=== PATIENT | male | born 1980 | race Caucasian/White ===

== ENCOUNTER 2019-04-15 14:14 | Inpatient (IN) | payer OTHER ==
[2019-04-15 17:16] VITALS: BMI 34.0
--- NOTE | 2019-04-15 18:09 | HP ---
COWS - Scale Resting Pulse: 0= [place] 80 or Below Sweatin=Flushed/Facial Moisture Restless Observation: 1= Difficult to Sit Still Pupil Size: 1= Pupils >than Normal Bone or Joint Aches: 1= Mild Discomfort Runny Nose/ Eye Tearin= Nasal Congestion GI Upset > 30mins: 2= Nausea/Diarrhea Tremor Observation: 2= Slight Tremor Visible Yawning Observation: 0= None Anxiety or Irritability: 2=Irritable/Anxious Goose Flesh Skin: 0=Smooth Skin COWS Score: 12 CIWA Score - Admission Criteria [facility]ASAS Guidelines: Admission for Medically Managed Detox: Requires at least one of the followin. CIWA greater than 12 2. Seizures within the past 24 hours 3. Delirium tremens within the past 24 hours 4. Hallucinations within the past 24 hours 5. Acute intervention needed for co occurring medical disorder 6. Acute intervention needed for co occurring psychiatric disorder 7. Severe withdrawal that cannot be handled at a lower level of care (continued vomiting, continued diarrhea, abnormal vital signs) requiring intravenous medication and/or fluids 8. Admission ROS S - HPI Chief Complaint: I NEED TO CHANGE Allergies/Adverse Reactions: Allergies Allergy/AdvReac Type Severity Reaction Status Date / Time No Known Allergies Allergy Verified 04/15/19 17:16 History of Present Illness: 38 YO MALE FIRST OPIATE USE 13 YO NOT CONSISTENT UNTIL AGE 35 COCAINE AGE 12; PROBLEMATIC TEEN NOW USING 10 BAGS YESTERDAY NOT DAILY USE HAS ATTEMPYTED TO DC USE - 8 MOS ABSTINENT IN [facility] - Ebola screening Have you traveled outside of the country in the last 21 days: No (N) Have you had contact with anyone from an Ebola affected area: No Do you have a fever: No - Review of Systems Constitutional: Loss of Appetite, Changes in sleep EENT: reports: No Symptoms Reported Respiratory: reports: No Symptoms reported Cardiac: reports: No Symptoms Reported GI: reports: Nausea, Abdominal cramping : reports: No Symptoms Reported Musculoskeletal: reports: Joint Pain, Muscle Pain Integumentary: reports: No Symptoms Reported Neuro: reports: Headache Endocrine: reports: No Symptoms Reported Hematology: reports: No Symptoms Reported Psychiatric: reports: Agitated, Anxious Patient History - Patient Medical History Hx Anemia: No Hx Asthma: No Hx Chronic Obstructive Pulmonary Disease (COPD): No Hx Cancer: No Hx Cardiac Disorders: No Hx Congestive Heart Failure: No Hx Hypertension: No Hx Hypercholesterolemia: No Hx Pacemaker: No HX Cerebrovascular Accident: No Hx Seizures: No Hx Dementia: No Hx Diabetes: No Hx Gastrointestinal Disorders: No Hx Liver Disease: No Hx Genitourinary Disorders: No Hx Sexually Transmitted Disorders: No Hx Renal Disease (ESRD): No Hx Thyroid Disease: No Hx Human Immunodeficiency Virus (HIV): No Hx Hepatitis C: No Hx Depression: No Hx Suicide Attempt: No Hx Bipolar Disorder: No Hx Schizophrenia: No - Patient Surgical History Past Surgical History: No - Smoking Cessation Smoking history: Current every day smoker Have you smoked in the past 12 months: Yes Aproximately how many cigarettes per day: 8 Initiated information on smoking cessation: Yes 'Breaking Loose' booklet given: 04/15/19 - Substances abused Heroin Other (specify): sniff Frequency: Daily Amount used: 6 to 8 bags Age of first use: 35 Date of last use: 04/15/19 Admission Physical Exam [facility] - Vital Signs Vital Signs: Vital Signs - 24 hr 04/15/19 17:11 Temperature 97.1 F L Pulse Rate 64 Respiratory 19 Rate Blood Pressure 129/77 - Physical General Appearance: Yes: Disheveled, Irritable, Anxious HEENTM: Yes: EOMI, Normal ENT Inspection, Normocephalic, Normal Voice, BERNIE Respiratory: Yes: Within Normal Limits, Chest Non-Tender, Lungs Clear Neck: Yes: No masses,lesions,Nodules Breast: Yes: Breast Exam Deferred Cardiology: Yes: Regular Rhythm, Regular Rate, S1, S2 Abdominal: Yes: Normal Bowel Sounds, Non Tender Genitourinary: Yes: Within Normal Limits Back: Yes: Normal Inspection Musculoskeletal: Yes: Within Normal Limits, full range of Motion Extremities: Yes: Normal Inspection Neurological: Yes: sampler tester II-XII NML intact, Fully Oriented, Alert, Motor Strength 5/5 Integumentary: Yes: Normal Color, Track [place], Other (TATTOO) - Diagnostic (1) Opiate withdrawal Current Visit: Yes Status: Acute (2) Cocaine dependence Current Visit: Yes Status: Acute Cleared for Admission [facility] - Detox or Rehab [facility] Level of Care: Medically Supervised Detox Regimen/Protocol: Methadone Breathalyzer - Breathalyzer Breathalyzer: 0.007 Urine Drug Screen - Test Device Lot number: [id number] Expiration date: 12/22/20 - Control Is test valid?: Yes - Results Drug screen NEGATIVE: No Urine drug screen results: ELFEGO-Cocaine, FEN-Fentanyl, MOP-Opiates, OXY-Oxycodone Inpatient Rehab Admission - Rehab Decision to Admit Inpatient rehab admission?: No
[2019-04-15] MEDS ORDERED: MAG HYDROX/AL HYDROX/SIMETH 30 ML UNIT-DOSE CUP PO PRN (18:12)
[2019-04-15] MEDS ORDERED: hydrOXYzine PAMOATE 25 MG CAPSULE (FP) PO PRN (18:12)
[2019-04-15] MEDS ORDERED: MAGNESIUM HYDROX 2400MG/30ML ORAL SUSPENSION 30 ML CUP PO PRN (18:12)
[2019-04-15] MEDS ORDERED: MENTHOL/PHENOL 1 EACH UD MM PRN (18:12)
[2019-04-15] MEDS ORDERED: MAGNESIUM CITRATE 300 ML BOTTLE PO PRN (18:12)
[2019-04-15] MEDS ORDERED: IBUPROFEN 400 MG TABLET (FP) PO PRN (18:12)
[2019-04-15] MEDS ORDERED: BISMUTH SUBSALICYLATE 524 MG/30 ML UD PO PRN (18:12)
[2019-04-15] MEDS ORDERED: MELATONIN 5 MG TABLETS PO PRN (18:12)
[2019-04-15] MEDS ORDERED: ACETAMINOPHEN 325 MG TABLET (FP) PO PRN ×2 (18:12)
[2019-04-15] MEDS ORDERED: METHADONE HCL 10 MG TABLET (FOR DETOX USE ONLY) PO ONE (18:12)
[2019-04-15] MEDS: THIAMINE HCL 100 MG TABLET (FP) PO SCH (22:06)
[2019-04-16] MEDS ORDERED: METHADONE HCL 5 MG TABLET (FOR DETOX USE ONLY) PO ONE (10:00)
[2019-04-16] MEDS: PRENATAL VITAMINS W/ FOLIC ACID TABLET (FP) PO SCH (10:26)
--- NOTE | 2019-04-16 10:32 | EKG ---
Test Reason : Blood Pressure : / mmHG Vent. Rate : 067 BPM Atrial Rate : 067 BPM P-R Int : 160 ms QRS Dur : 098 ms QT Int : 386 ms P-R-T Axes : 028 -01 014 degrees QTc Int : 407 ms NORMAL SINUS RHYTHM CANNOT RULE OUT ANTERIOR INFARCT , AGE UNDETERMINED ABNORMAL ECG NO PREVIOUS ECGS AVAILABLE Confirmed by ROBIN CASILLAS MD ([id number]) on 04/16/2019 10:32:16 AM Referred By: Confirmed By:ROBIN CASILLAS MD
[2019-04-16 10:40] LABS: HEMATOCRIT 37.8 % (35.4-49); HEMOGLOBIN 12.7 GM/dL (11.7-16.9); MCH 29.3 pg (25.7-33.7); MCHC 33.6 g/dl (32.0-35.9); MEAN CELL VOLUME 87.3 fl (80-96); MEAN PLT VOLUME 9.5 fl (7.5-11.1); PLATELET COUNT 179 K/MM3 (134-434); RBC 4.33 M/mm3 (4.00-5.60); RDW 13.7 % (11.9-15.9); WHITE BLOOD COUNT 7.5 K/mm3 (4.0-10.0)
[2019-04-16 10:42] LABS: ALBUMIN 3.3 g/dl (3.4-5.0); BILIRUBIN,TOTAL 0.2 mg/dL (0.2-1); BLOOD UREA NITROGEN 16.8 mg/dL (7-18); CALCIUM 8.7 mg/dL (8.5-10.1); CREATININE 0.9 mg/dL (0.55-1.3); POTASSIUM 3.9 mmol/L (3.5-5.1); TOT PROT 6.1 g/dl (6.4-8.2)
--- NOTE | 2019-04-16 12:55 | PN ---
S COWS - Scale Resting Pulse: 0= [place] 80 or Below Sweatin= No chills or Flushing Restless Observation: 1= Difficult to Sit Still Pupil Size: 1= Pupils >than Normal Bone or Joint Aches: 2= Severe Diffuse Aches Runny Nose/ Eye Tearin= Nasal Congestion GI Upset > 30mins: 2= Nausea/Diarrhea Tremor Observation of Outstretched Hands: 2= Slight Tremor Visible Yawning Observation: 1= 1-2x During Session Anxiety or Irritability: 2=Irritable/Anxious Goose Flesh Skin: 0=Smooth Skin COWS Score: 12 S Progress Note (SOAP) Subjective: ALERT,IRRITABLE,ANXIOUS,INTERRUPTED SLEEP,PAIN IN THE BODY AND BACK Objective: 04/16/19 12:51 Vital Signs Temperature 97.3 F L 04/16/19 09:45 Pulse Rate 58 L 04/16/19 09:45 Respiratory Rate 18 04/16/19 09:45 Blood Pressure 118/82 04/16/19 09:45 O2 Sat by Pulse Oximetry (%) 04/16/19 12:52 Laboratory Last Values WBC 7.5 K/mm3 (4.0-10.0) 04/16/19 08:30 RBC 4.33 M/mm3 (4.00-5.60) 04/16/19 08:30 Hgb 12.7 GM/dL (11.7-16.9) 04/16/19 08:30 Hct 37.8 % (35.4-49) 04/16/19 08:30 MCV 87.3 fl (80-96) 04/16/19 08:30 MCH 29.3 pg (25.7-33.7) 04/16/19 08:30 MCHC 33.6 g/dl (32.0-35.9) 04/16/19 08:30 RDW 13.7 % (11.9-15.9) 04/16/19 08:30 Plt Count 179 K/MM3 (134-434) 04/16/19 08:30 MPV 9.5 fl (7.5-11.1) 04/16/19 08:30 Sodium 141 mmol/L (136-145) 04/16/19 08:30 Potassium 3.9 mmol/L (3.5-5.1) 04/16/19 08:30 Chloride 106 mmol/L (98-107) 04/16/19 08:30 Carbon Dioxide 28 mmol/L (21-32) 04/16/19 08:30 Anion Gap 7 MMOL/L (8-16) L 04/16/19 08:30 BUN 16.8 mg/dL (7-18) 04/16/19 08:30 Creatinine 0.9 mg/dL (0.55-1.3) 04/16/19 08:30 Est GFR (CKD-EPI)AfAm 124.26 04/16/19 08:30 Est GFR (CKD-EPI)NonAf 107.21 04/16/19 08:30 Random Glucose 89 mg/dL (74-106) 04/16/19 08:30 Calcium 8.7 mg/dL (8.5-10.1) 04/16/19 08:30 Total Bilirubin 0.2 mg/dL (0.2-1) 04/16/19 08:30 AST 9 U/L (15-37) L 04/16/19 08:30 ALT 22 U/L (13-61) 04/16/19 08:30 Alkaline Phosphatase 116 U/L (45-117) 04/16/19 08:30 Total Protein 6.1 g/dl (6.4-8.2) L 04/16/19 08:30 Albumin 3.3 g/dl (3.4-5.0) L 04/16/19 08:30 RPR Titer Nonreactive (NONREACTIVE) 04/16/19 08:30 Assessment: 04/16/19 12:54 WITHDRAWAL SYMPTOM Plan: CONTINUE DETOX METHADONE REGIMEN,WILL ADD VALIUM 10 MGS PO Q 4 HRS FOR 72 HRS, CLOSE MONITORING
[2019-04-16] MEDS: cloNIDine HCL 0.1 MG TABLET PO PRN ×2 (13:18→22:15)
[2019-04-16] MEDS: METHOCARBAMOL 500 MG TABLET PO PRN ×2 (13:18→22:15)
[2019-04-16] MEDS: diazePAM 5 MG TABLET PO PRN ×2 (13:50→22:15)
[2019-04-16] MEDS: THIAMINE HCL 100 MG TABLET (FP) PO SCH (22:15)
[2019-04-17] MEDS ORDERED: METHADONE HCL 10 MG TABLET (FOR DETOX USE ONLY) PO ONE (10:00)
[2019-04-17] MEDS: PRENATAL VITAMINS W/ FOLIC ACID TABLET (FP) PO SCH (10:27)
[2019-04-17] MEDS: diazePAM 5 MG TABLET PO PRN ×2 (12:21→21:00)
[2019-04-17] MEDS: METHOCARBAMOL 500 MG TABLET PO PRN ×2 (12:21→23:21)
--- NOTE | 2019-04-17 13:12 | PN ---
[facility] COWS - Scale Resting Pulse: 1= [place] 81-100 Sweatin= Chills/Flushing Restless Observation: 0= Sits Still Pupil Size: 0= Normal to Room Light Bone or Joint Aches: 2= Severe Diffuse Aches Runny Nose/ Eye Tearin= None GI Upset > 30mins: 0= None Tremor Observation of Outstretched Hands: 2= Slight Tremor Visible Yawning Observation: 1= 1-2x During Session Anxiety or Irritability: 2=Irritable/Anxious Goose Flesh Skin: 0=Smooth Skin COWS Score: 9 BHS Progress Note (SOAP) Subjective: Anxious, Body Aches, Tremors. Objective: PATIENT A & O X 3. IN NO ACUTE DISTRESS. 04/17/19 13:13 Vital Signs Temperature 99.0 F 04/17/19 13:05 Pulse Rate 82 04/17/19 13:05 Respiratory Rate 18 04/17/19 13:05 Blood Pressure 113/72 04/17/19 13:05 O2 Sat by Pulse Oximetry (%) Laboratory Tests 04/16/19 04/16/19 04/16/19 08:30 08:30 08:30 WBC 7.5 RBC 4.33 Hgb 12.7 Hct 37.8 MCV 87.3 MCH 29.3 MCHC 33.6 RDW 13.7 Plt Count 179 MPV 9.5 Sodium 141 Potassium 3.9 Chloride 106 Carbon Dioxide 28 Anion Gap 7 L BUN 16.8 Creatinine 0.9 Est GFR (CKD-EPI)AfAm 124.26 Est GFR (CKD-EPI)NonAf 107.21 Random Glucose 89 Calcium 8.7 Total Bilirubin 0.2 AST 9 L ALT 22 Alkaline Phosphatase 116 Total Protein 6.1 L Albumin 3.3 L RPR Titer Nonreactive LABS NOTED. 04/17/19 13:14 Assessment: 04/17/19 13:14 WITHDRAWAL SYMPTOMS. Plan: CONTINUE DETOX. PATIENT SCHEDULED FOR DISCHARGE FROM DETOX UNIT TOMORROW.
[2019-04-17] MEDS: THIAMINE HCL 100 MG TABLET (FP) PO SCH (21:00)
[2019-04-18] MEDS ORDERED: METHADONE HCL 5 MG TABLET (FOR DETOX USE ONLY) PO ONE (06:00)
--- NOTE | 2019-04-18 08:58 | DS ---
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 - Physical Exam Results Vital Signs: Vital Signs Temperature 96.7 F L 04/18/19 06:35 Pulse Rate 50 L 04/18/19 06:35 Respiratory Rate 18 04/18/19 06:35 Blood Pressure 106/60 04/18/19 06:35 O2 Sat by Pulse Oximetry (%) Pertinent Admission Physical Exam Findings: opioid withdrawal sx Laboratory Last Values WBC 7.5 K/mm3 (4.0-10.0) 04/16/19 08:30 RBC 4.33 M/mm3 (4.00-5.60) 04/16/19 08:30 Hgb 12.7 GM/dL (11.7-16.9) 04/16/19 08:30 Hct 37.8 % (35.4-49) 04/16/19 08:30 MCV 87.3 fl (80-96) 04/16/19 08:30 MCH 29.3 pg (25.7-33.7) 04/16/19 08:30 MCHC 33.6 g/dl (32.0-35.9) 04/16/19 08:30 RDW 13.7 % (11.9-15.9) 04/16/19 08:30 Plt Count 179 K/MM3 (134-434) 04/16/19 08:30 MPV 9.5 fl (7.5-11.1) 04/16/19 08:30 Sodium 141 mmol/L (136-145) 04/16/19 08:30 Potassium 3.9 mmol/L (3.5-5.1) 04/16/19 08:30 Chloride 106 mmol/L (98-107) 04/16/19 08:30 Carbon Dioxide 28 mmol/L (21-32) 04/16/19 08:30 Anion Gap 7 MMOL/L (8-16) L 04/16/19 08:30 BUN 16.8 mg/dL (7-18) 04/16/19 08:30 Creatinine 0.9 mg/dL (0.55-1.3) 04/16/19 08:30 Est GFR (CKD-EPI)AfAm 124.26 04/16/19 08:30 Est GFR (CKD-EPI)NonAf 107.21 04/16/19 08:30 Random Glucose 89 mg/dL (74-106) 04/16/19 08:30 Calcium 8.7 mg/dL (8.5-10.1) 04/16/19 08:30 Total Bilirubin 0.2 mg/dL (0.2-1) 04/16/19 08:30 AST 9 U/L (15-37) L 04/16/19 08:30 ALT 22 U/L (13-61) 04/16/19 08:30 Alkaline Phosphatase 116 U/L (45-117) 04/16/19 08:30 Total Protein 6.1 g/dl (6.4-8.2) L 04/16/19 08:30 Albumin 3.3 g/dl (3.4-5.0) L 04/16/19 08:30 RPR Titer Nonreactive (NONREACTIVE) 04/16/19 08:30 lab noted - Treatment Hospital Course: Detox Protocol Followed, Detoxed Safely, Responded well, Discharged Condition Good, Rehab Referral Accepted Patient has Accepted a Rehab Referral to: community support appraoch - Medication Discharge Medications: Ambulatory Orders Naloxone HCl [Narcan] 4 mg NS ASDIR PRN #1 spray 04/18/19 - Diagnosis (1) Opiate withdrawal Current Visit: Yes Status: Acute - AMA Did Patient Leave Against Medical Advice: No COWS (PN) - Opiate Withdrawal Resting Pulse: 0= [place] 80 or Below Sweatin= Chills/Flushing Restless Observation: 0= Sits Still Pupil Size: 0= Normal to Room Light Bone or Joint Aches: 1= Mild Discomfort Runny Nose/ Eye Tearin= None GI Upset > 30mins: 0= None Tremor Observation of Outstretched Hands: 1= Tremor [place], Not Seen Yawning Observation: 0= None Anxiety or Irritability: 1=Feels Anxious/Irritable Goose Flesh Skin: 0=Smooth Skin COWS Score: 4
[2019-04-18 09:12] VITALS: BP 107/71; PULSE 55; TEMP 96.9
== END 2019-04-18 09:32 | disposition home or self-care (01) | DRG 773 ==
LOC: YASAS 14:14 → Y3N 18:35
PROVIDERS: ADMIT Surgery; ATTEND Surgery
PROC: HZ2ZZZZ Detoxification Services for Substance Abuse Treatment (ICD-10-PCS; principal; 2019-04-15)
DX: F11.23 Opioid dependence with withdrawal (principal); F14.20 Cocaine dependence, uncomplicated; F17.210 Nicotine dependence, cigarettes, uncomplicated
CPT/HCPCS: 36415; 80053; 85027; 86593; 93005; 93010; J0735